=== PATIENT | male | born 1960 ===

== ENCOUNTER → 2022-09-13 | Outpatient (CLI) | payer OTHER ==
[2022-09-13 15:23] LABS: URINE APPEARANCE CLEAR; URINE BILIRUBIN NEGATIVE (NEGATIVE); URINE BLOOD NEGATIVE (NEGATIVE); URINE COLOR YELLOW; URINE GLUCOSE NEGATIVE (NEGATIVE); URINE KETONE NEGATIVE (NEGATIVE); URINE LEUKOCYTE ESTERASE NEGATIVE (NEGATIVE); URINE NITRATE NEGATIVE (NEGATIVE); URINE PROTEIN(semi-quant) NEGATIVE (NEGATIVE); URINE UROBILINOGEN NORMAL (NORMAL); URINE WBC 0-1 /hpf (0-3)
[2022-09-13 15:24] LABS: URINE MUCUS PRESENT (NOT PRESENT)
== END ==
LOC: RAD 12:47
PROVIDERS: Internal Medicine
DX: N20.0 Calculus of kidney (principal)

== ENCOUNTER → 2023-03-18 | Outpatient (CLI) | payer OTHER | LOC: LAB 18:04 | DX: N20.0 Calculus of kidney (principal) ==

== ENCOUNTER → 2023-04-10 | Outpatient (CLI) | payer OTHER ==
[2023-04-10 12:15] LABS: BASO # 0.05 K/mm3 (0.02-0.10); EOS # 0.24 K/mm3 (0.04-0.40); EOS % 4.3 % (0.0-4.0); HEMOGLOBIN 14.3 g/dL (13.5-18.0); LYMPH# 1.33 K/mm3 (1.50-4.00); MEAN CELL VOLUME 90 fl (78-100); MEAN CORPUSCULAR HEMOGLOBIN 30 pg (27-31); MEAN CORPUSCULAR HGB CONC 33 g/dL (33-37); MEAN PLATELET VOLUME 11.1 fl (7.4-10.4); MONO # 0.47 K/mm3 (0.20-0.80); NEU # 3.49 K/mm3 (1.40-6.50); PLATELET COUNT 157 K/mm3 (130-400); RED CELL DISTRIBUTION WIDTH 13.7 % (11.5-14.5); WHITE BLOOD COUNT 5.6 K/mm3 (4.8-10.8)
[2023-04-10 12:21] LABS: ALBUMIN 4.4 g/dL (3.4-4.8)
[2023-04-10 12:22] LABS: CALCIUM 9.6 mg/dL (8.3-10.5)
[2023-04-10 12:24] LABS: TOTAL PROTEIN 7.1 g/dL (6.2-8.1)
[2023-04-10 12:25] LABS: TOTAL BILIRUBIN 0.6 mg/dL (0.2-1.2)
[2023-04-10 12:30] LABS: MAGNESIUM 1.97 mg/dL (1.60-2.60)
== END ==
LOC: LAB 12:05
PROVIDERS: Internal Medicine
DX: Z00.00 Encounter for general adult medical examination without abnormal findings (principal); Z23 Encounter for immunization; K21.9 Gastro-esophageal reflux disease without esophagitis; N20.0 Calculus of kidney; H34.8122 Central retinal vein occlusion, left eye, stable

== ENCOUNTER → 2023-10-27 | Day surgery (SDC) | payer OTHER ==
[~2023-10-27] MED LIST: fentaNYL 100 MCG/2 ML VIAL IV SCH
== END | disposition home or self-care (01) ==
LOC: MSO 08:02
DX: Z12.11 Encounter for screening for malignant neoplasm of colon (principal)
CPT/HCPCS: 00812; J2704; J3010; J7120